=== PATIENT | female | born 1960 | race Two or more races ===

== ENCOUNTER 2016-08-11 19:56 | Emergency (ER) | payer SELFPAY ==
[~2016-08-11] VITALS: Ht 157.5 cm; Wt 63.5 kg
[2016-08-11 21:33] LABS: Urine Mucus FEW (None Seen); Urine RBC 1 /hpf (0 - 4); Urine Squamous Epithelial Cell FEW /hpf (<5)
[2016-08-11 21:35] LABS: Urine Color Yellow (Yellow); Urine Glucose NEG (Normal)
[2016-08-11 21:36] LABS: Urine Bilirubin Negative (Negative); Urine Blood Negative /uL (Negative); Urine Ketone Negative (Negative); Urine Nitrite Negative (Negative); Urine Urobilinogen Normal (Negative)
[2016-08-11 21:36] LABS: Basophils # (auto) 0 uL; Basophils % (auto) 0.5 % (0.0-2.0); Eosinophils # (auto) 0.1 uL; Eosinophils % (auto) 1.5 % (0.0-7.0); Hematocrit 41.3 % (36.0-46.0); Hemoglobin 13.8 g/dL (12.2-16.2); Lymphocytes # (auto) 1.9 uL; Lymphocytes % (auto) 30.6 % (10.0-50.0); Mean Corpuscular Hemoglobin 30.1 pg (28.0-32.0); Mean Corpuscular Hgb Conc. 33.5 g/dL (32.0-36.0); Mean Corpuscular Volume 89.9 fL (80.0-100.0); Mean Platelet Volume 9.1 fL (7.4-10.4); Monocytes # (auto) 0.3 uL; Monocytes % (auto) 5.5 % (0.0-12.0); Neutrophils # (auto) 3.9 uL; Neutrophils % (auto) 61.9 % (37.0-80.0); Platelet Count (auto) 272 10^3/uL (140-450); Red Cell Distribution Width 14.2 % (11.6-16.0); White Blood Cell 6.3 10^3/uL (4.4-10.8)
[2016-08-11 21:53] LABS: Albumin 3.7 g/dL (3.4-5.0); Amylase 93 U/L (25-115); Anion Gap 13 (5-15); Aspartate Aminotransferase 17 U/L (15-37); BUN/Creatinine Ratio 17.1; Blood Urea Nitrogen 12 mg/dL (7-18); Calcium 8.7 mg/dL (8.5-10.1); Carbon Dioxide 21 mmol/L (21-32); Chloride 112 mmol/L (98-107); GFR African American 111 mL/min; GFR Non-African American 92 mL/min; Glucose 170 mg/dL (74-106); Magnesium 2.4 mg/dL (1.6-2.6); Potassium 3.7 mmol/L (3.5-5.1); Sodium 146 mmol/L (136-145)
[2016-08-11 21:56] LABS: INR 0.95 (0.9-1.15); Partial Thromboplastin Time 27.4 sec (22.64-33.71); Prothrombin Time 10.3 sec (9.37-12.3)
[2016-08-11 22:06] LABS: Alkaline Phosphatase 111 U/L (45-117); Bilirubin, Total 0.3 mg/dL (0.2-1.0); Total Protein 7.2 g/dL (6.4-8.2)
[2016-08-12 04:02] VITALS: BP 106/56
[2016-08-12] MEDS ORDERED: KETOROLAC TROMETH 60MG/2ML VIAL IM ONE (04:45)
== END 2016-08-12 05:54 | disposition home or self-care (01) ==
LOC: ER 20:00
DX: S39.012A Strain of muscle, fascia and tendon of lower back, initial encounter (principal); I10 Essential (primary) hypertension; M79.606 Pain in leg, unspecified; X50.9XXA Other and unspecified overexertion or strenuous movements or postures, initial encounter; Y93.89 Activity, other specified; Y99.8 Other external cause status; Y92.89 Other specified places as the place of occurrence of the external cause; Z90.710 Acquired absence of both cervix and uterus
CPT/HCPCS: 36415; 71010; 74176; 80053; 81001; 82150; 83690; 83735; 84484; 85025; 85610; 85730; 93005; 96372; 99285; J1885

== ENCOUNTER 2022-02-11 00:39 | Emergency (ER) | payer MEDICAID, OTHER ==
[~2022-02-11] VITALS: Ht 157.5 cm; Wt 63.0 kg
[2022-02-11 00:39] VITALS: BP 138/75
[2022-02-11] MEDS ORDERED: ACETAMINOPHEN 325 MG TAB PO ONE (03:30)
== END 2022-02-11 05:26 | disposition left against medical advice (07) ==
LOC: ER 00:39
DX: J02.9 Acute pharyngitis, unspecified (principal); R50.9 Fever, unspecified; M79.10 Myalgia, unspecified site; Z53.21 Procedure and treatment not carried out due to patient leaving prior to being seen by health care provider; Z20.822 Contact with and (suspected) exposure to COVID-19
CPT/HCPCS: 36415; 87426; 87804

== ENCOUNTER 2024-08-31 07:51 | Outpatient (CLI) | payer OTHER ==
[~2024-08-31] VITALS: Ht 154.9 cm; Wt 60.3 kg
[2024-08-31] MEDS: REGADENOSON 0.4 MG/5 ML SYRG IV ONE ×2 (10:09→10:14)
[2024-09-01] MEDS ORDERED: IOHEXOL 300 MG/ML 100ML BOTTLE IJ ONE (07:59)
--- NOTE | 2024-09-01 17:21 | DVHSR ---
APPROVED REPORT Exam: Nuclear Stress Test Indication: CAD Stress Tech: Barb Mo Ht: 5 ft 1 in Wt: 133 lbs BSA: 1.59 m2 HR: 56 bpm BP: 125/56 mmHg BMI: 25.12 Rhythm: Bradycardia Medical History Medical History: HTN, Hyperlipidemia, hypothyroidism Stress Test Details Stress Test: Pharmacologic stress testing performed using 0.4 mg of regadenoson per 5 mL given IV ov er 10 seconds. Reason for pharmacologic stress test: chest pain. HR Resting HR: 56 bpmMax Heart Rate (APMHR): 156.330878 bpm Max HR Achieved: 107 bpmTarget HR (85% APMHR): 132.788650 bpm % of APMHR: 68.59 Recovery HR: 76 bpm BP Resting BP: 125/56 mmHg Recovery BP: 123/70 mmHg ECG Resting ECG: Sinus Bradycardia Clinical Reason for Termination: Completed protocol Nurse Comments Uneventful stress test performed per protocol. Patient tolerated well and was taken back to [facility] via wheel chair in stable condition by tech. Stress ECG Conclusion lvef 67% normal perfusion scan NM EXAM: Myocardial Perfusion REST/STRESS Imaging Protocol: Rest Tc-99m/Stress Tc-99m 1 day Resting Data Rest SPECT myocardial perfusion imaging was performed in supine position 60 minutes following the int ravenous injection of 10.0 mCi of Tc-99m Sestamibi. Time of rest injection: 09:00 Date: 08/31/2024 Time of rest imagin:00 Date: 08/31/2024 Administration Route: IV Administration Site: Left Arm Pharmacologic Stress Pharmacologic stress test was performed by injecting Regadenoson 0.4 mg IV push followed by the intra venous injection of 31.4 mCi of Tc-99m Sestamibi. Time of stress injection: 10:05 Date: 08/31/2024 Time of stress imagin:05 Date: 08/31/2024 Administration Route: IV Administration Site: Left Arm Gated Stress SPECT was performed 60 minutes after stress injection. The images were gated to evaluate regional wall motion and calculate left ventricular ejection fracti on. Stress only was performed in the Supine position. Nuclear Conclusion Nuclear Findings: negative for ischemia lvef 67% normal perfusion scan
== END 2024-08-31 17:00 | disposition home or self-care (01) ==
LOC: XYW 07:51
PROVIDERS: ATTEND Internal Medicine
DX: I25.10 Atherosclerotic heart disease of native coronary artery without angina pectoris (principal); I10 Essential (primary) hypertension; R00.2 Palpitations; E78.00 Pure hypercholesterolemia, unspecified; R42 Dizziness and giddiness; R53.83 Other fatigue; R07.9 Chest pain, unspecified; E03.9 Hypothyroidism, unspecified; E78.5 Hyperlipidemia, unspecified; Z68.24 Body mass index [BMI] 24.0-24.9, adult
CPT/HCPCS: 78452; 93017; A9500; J2785

== ENCOUNTER 2024-09-18 18:53 | Inpatient (IN) | payer OTHER ==
[~2024-09-18] VITALS: Ht 157.5 cm; Wt 61.2 kg
--- NOTE | 2024-09-18 19:18 | ED.PDOC ---
History of Present Illness HPI Comments 63-year-old female brought by family for evaluation of palpitations and shortness of breath. Patient states she has been having intermittent episodes of rapid heart rate and shortness of breath while at rest since yesterday afternoon. Patient states she had a recurrent episode approximately an hour ago while sitting watching TV. She checked her heart rate using a pulse oximeter, and heart rate was 111. She denies any associated chest pain, but does report her symptoms are associated with nausea but no vomiting. Denies recent fever, cough, diaphoresis or edema. Patient initially went to urgent Care but was referred to the ER for further evaluation management. Upon arrival blood pressure was 147/90 mmHg, heart rate at 81, and oxygen saturation was 98% on room air. Patient states she recently underwent Cardiology evaluation including echocardiogram, and was told results were normal. She was recommended for a Holter monitor, which she is currently awaiting. She denies any history of lung disease. Chief Complaint: Shortness of Breath Time Seen by MD: 19:18 Reviewed Notes: Nurses Notes Allergies: Coded Allergies: NO KNOWN ALLERGIES (Unverified , 08/31/24) Information Source: Patient Mode of Arrival: Ambulatory Severity: Moderate Timing: Hours Duration: Intermittent Past Medical History PAST MEDICAL HISTORY: High Lipids, HTN, Thyroid Past Medical History (Other): Uterine cancer in remission Surgical History: Appendectomy, Hysterectomy Surgical History (Other): Oophorectomy Family History Family History: Reviewed,noncontributory to illness Social History Smoker: Cigarettes Alcohol: Denies ETOH Use Drugs: Denies Drug Use Lives In: Home Constitutional: denies: chills, diaphoresis, fatigue, fever, malaise, sweats, weakness, others EENTM: denies: blurred vision, double vision, ear bleeding, ear discharge, ear drainage, ear pain, ear ringing, eye pain, eye redness, hearing loss, mouth pain, mouth swelling, nasal discharge, nose bleeding, nose congestion, nose pain, photophobia, tearing, throat pain, throat swelling, voice changes, others Respiratory: reports: shortness of breath; denies: cough, hemoptysis, orthopnea, SOB at rest, SOB with excertion, stridor, wheezing, others Cardiovascular: reports: palpitations; denies: chest pain, dizzy spells, beti phoresis, Dyspnea on exertion, edema, irregular heart beat, left arm pain, lightheadedness, PND, syncope, others Gastrointestinal: reports: nausea; denies: abdomen distended, abdominal pain, blood streaked bowels, constipated, diarrhea, dysphagia, difficulty swallowing, hematemesis, melena, poor appetite, poor fluid intake, rectal bleeding, rectal pain, vomiting, others Genitourinary: denies: abnormal vagina bleeding, burning, dyspareunia, dysuria, flank pain, frequency, hematuria, incontinence, pain, , vagina discharge, urgency, others Neurological: denies: dizziness, fainting, headache, left sided numbness, left sided weakness, numbness, paresthesia, pre-existing deficit, right sided numbness, right sided weakness, seizure, speech problems, tingling, tremors, weakness, others Musculoskeletal: denies: back pain, gout, joint pain, joint swelling, muscle pain, muscle stiffness, neck pain, others Integumetry: denies: bruises, change in color, change in hair/nails, dryness, laceration, lesions, lumps, rash, wounds, others Allergic/Immunocompromised: denies: Difficulty Healing, Frequent Infections, Hives, Itching, others Hematologic/Lymphatic: denies: anemia, blood clots, easy bleeding, easy bruising, swollen glands, others Endocrine: denies: excessive hunger, excessive sweating, excessive thirst, excessive urination, flushing, intolerance to cold, intolerance to heat, unexplained weight gain, unexplained weight loss, others Psychiatric: denies: anxiety, bipolar disorder, depression, hopeless, panic disorder, schizophrenia, sleepless, suicidal, others Physical Exam General Appearance: Mild Distress HEENT: Other (Pupils and face symmetric. Moist mucous membranes.) Neck: Full Range of Motion, Normal Inspection Respiratory: Lungs Clear, No Accessory Muscle Use, No Respiratory Distress, Normal Breath Sounds Cardiovascular: No Edema, No JVD, Regular Rate/Rhythm Breast Exam: Deferred Gastrointestinal: Non Tender, Soft Genitalia: Deferred Pelvic: Deferred Rectal: Deferred Extremities: Normal inspection, Normal range of motion, Non-tender, No pedal edema Neurologic: Alert (Oriented x4), Normal Affect, Normal Mood, Other (Ambulatory) Cerebellar Function: NOT DONE Reflexes: NOT DONE Skin: Dry, Normal Color, Warm Lymphatic: NOT DONE Was a procedure done? Was a procedure done?: No EKG EKG : Comments Sinus rhythm, rate 64, normal intervals, borderline left axis deviation, normal QRS, nonspecific T changes. Differential Dx Considerations may include: Arrhythmia, OK, anxiety, Anemia, electrolyte imbalance, COPD, asthma, CHF, infection such as bronchitis or pneumonia, thyroid disease, among others X-Ray, Labs, Meds, VS Vital Signs Date Time Temp Pulse Resp B/P (MAP) Pulse Ox O2 Delivery O2 Flow Rate FiO2 09/18/24 22:00 97.9 54 20 135/62 (86) 97 97.9 09/18/24 20:11 62 20 96 Room Air 09/18/24 20:11 98.6 62 20 140/69 (92) 96 98.6 09/18/24 19:00 Room Air* 0 21 09/18/24 18:58 98.3 81 20 147/90 (109) 98 98.3 Lab Test 09/18/24 20:19 09/18/24 20:07 09/18/24 19:17 Range/Units Urine Color Yellow Yellow Urine Clarity Clear Clear Urine pH 5.5 5.0-9.0 Urine Specific [place] 1.022 1.001-1.035 Urine Protein Negative Negative Urine Ketones Negative Negative Urine Blood Negative Negative /uL Urine Nitrite Negative Negative Urine Bilirubin Negative Negative Urine Urobilinogen Normal Negative mg/dL Urine Leukocyte Esterase Trace Negative /uL Urine RBC <1 0 - 4 /hpf Urine Microscopic WBC 4 0-5 /HPF Urine Squamous Epithelial Cells Few <5 /hpf Urine Bacteria Few H None Seen /hpf Urine Mucus Few None Seen Urine Glucose Normal Normal mg/dL Troponin I High Sensitivity < 3 L < 3 L </=34 ng/L Thyroid Stimulating Hormone (TSH) 1.80 0.55-4.78 uIU/mL White Blood Count 5.8 4.4-10.8 10^3/uL Red Blood Count 4.37 4.0-5.20 10^6/uL Hemoglobin 13.8 12.2-16.2 g/dL Hematocrit 41.0 36.0-46.0 % Mean Corpuscular Volume 93.6 80.0-100.0 fL Mean Corpuscular Hemoglobin 31.5 28.0-32.0 pg Mean Corpuscular Hemoglobin Concent 33.6 32.0-36.0 g/dL Red Cell Distribution Width 13.4 11.8-14.3 % Platelet Count 199 140-450 10^3/uL Mean Platelet Volume 8.4 6.9-10.8 fL Neutrophils (%) (Auto) 56.8 37.0-80.0 % Lymphocytes (%) (Auto) 34.1 10.0-50.0 % Monocytes (%) (Auto) 7.3 0.0-12.0 % Eosinophils (%) (Auto) 1.0 0.0-7.0 % Basophils (%) (Auto) 0.8 0.0-2.0 % Neutrophils # (Auto) 3.3 1.6-8.6 10 ^3/uL Lymphocytes # (Auto) 2.0 0.4-5.4 10 ^3/uL Monocytes # (Auto) 0.4 0-1.3 10 ^3/uL Eosinophils # (Auto) 0.1 0-0.8 10 ^3/uL Basophils # (Auto) 0 0-0.2 10 ^3/uL Nucleated Red Blood Cells 0.1 % Sodium Level 142 136-145 mmol/L Potassium Level 3.7 3.5-5.1 mmol/L Chloride Level 112 H 98-107 mmol/L Carbon Dioxide Level 22 20-31 mmol/L Anion Gap 8 5-15 Blood Urea Nitrogen 10 9-23 mg/dL Creatinine 0.75 0.550-1.02 mg/dL Glomerular Filtration Rate Calc 89 >90 mL/min BUN/Creatinine Ratio 13.3 10.0-20.0 Serum Glucose 141 H 74-106 mg/dL Calcium Level 10.1 8.7-10.4 mg/dL B-Type Natriuretic Peptide 19.92 0-100 pg/mL Current Medications Medications (Trade) Dose Ordered Sig/Chyna Route Start Time Stop Time Status Last Admin Lorazepam (Ativan Tablet) 0.5 mg ONCE ONCE PO 09/18/24 19:15 09/18/24 19:16 DC 09/18/24 20:23 Ondansetron HCl (Zofran) 4 mg ONCE ONCE IV 09/18/24 19:30 09/18/24 19:31 DC 09/18/24 20:26 CHEST RADIOGRAPH Indication: sob, palpitations Technique: Single frontal view of the chest was obtained Comparison: None FINDINGS: Lines and Tubes: None Lungs and Pleura: Pulmonary vascular congestion. No focal consolidation. No effusion. No pneumothorax. Cardiomediastinal contours: Cardiomegaly Bones: No acute osseous abnormality. IMPRESSION: Cardiomegaly with pulmonary vascular congestion. No focal consolidation. X-Ray, Labs, Meds, VS Comment 63-year-old female with a history of hypertension, dyslipidemia, thyroid disease and prediabetes presenting with palpitations and shortness of breath Vitals unremarkable Exam remarkable for anxious appearance Rhythm strip independently interpreted by me: Sinus rhythm, rate 64, no ectopy. Chest x-ray unremarkable CBC, basic metabolic panel, BNP and troponin unremarkable. UA pending Patient treated with the following in the ED: Ativan 0.5 mg p.o., Zofran 4 mg IV On re-evaluation, patient appears less anxious and nausea has resolved. Vitals are stable. May be due to thyroid disease, COPD or arrhythmia. Plan is to admit the patient for observation and Cardiology/ pulmonology evaluation. Time of 1ST Reevaluation: 19:14 Reevaluation 1ST: Unchanged Patient Education/Counseling: Diagnosis, Treatment Family Education/Counseling: No Family Present SEPSIS Sepsis Screen Physician Orders Chest Portable (09/18/24 19:11) Electrocardigram (09/18/24 19:11) Saline Lock (09/18/24 20:13) Atorvastatin (Lipitor) (09/19/24 22:00) Levothyroxine Tablet (Synthroid Tablet) (09/19/24 06:00) Losartan Tablet (Cozaar Tablet) (09/19/24 10:00) Hydralazine Injection (Apresoline Inject (09/18/24 22:15) Lorazepam 2mg/Ml Inj (Ativan Inj) (09/18/24 22:15) Allergies (09/18/24 22:03) Code Status (09/18/24 22:03) Sodium Chloride 0.9% (09/18/24 22:15) Oxygen Per Hour (09/18/24 22:03) Hydrocodone-Acet 5/325mg Tab ([place] (09/18/24 22:15) Ondansetron Hcl (Zofran) (09/18/24 22:15) Docusate Sodium Capsule (Colace Capsule) (09/18/24 22:15) Cardiac Diet-2gna,Lofat,Lochol (09/19/24 Breakfast) Condition: Serious (09/18/24 22:03) Acetaminophen Tablet (Tylenol Tablet) (09/18/24 22:15) Bedrest With Bathroom Privileg (09/18/24 22:03) Sequential Compression Device (09/18/24 ) Vital Signs Date Time Temp Pulse Resp B/P (MAP) Pulse Ox O2 Delivery O2 Flow Rate FiO2 09/18/24 22:00 97.9 54 20 135/62 (86) 97 97.9 09/18/24 20:11 62 20 96 Room Air 09/18/24 20:11 98.6 62 20 140/69 (92) 96 98.6 09/18/24 19:00 Room Air* 0 21 09/18/24 18:58 98.3 81 20 147/90 (109) 98 98.3 Laboratory Tests Test 09/18/24 19:17 White Blood Count 5.8 10^3/uL (4.4-10.8) Medications Medications Dose Ordered Sig/Chyna Route Start Time Stop Time Status Last Admin Dose Admin Lorazepam 0.5 mg ONCE ONCE PO 09/18/24 19:15 09/18/24 19:16 DC 09/18/24 20:23 Ondansetron HCl 4 mg ONCE ONCE IV 09/18/24 19:30 09/18/24 19:31 DC 09/18/24 20:26 Departure 1 Departure Time of Disposition: 19:54 Impression: Primary Impression: Palpitations Additional Impression: Shortness of breath Disposition: ADMITTED INPATIENT Admit to: Tele Condition: Guarded Critical Care Note Critical Care Time?: No Stability Stability form required: No Heart Score Heart Score: Heart Score Response (Comments) Value History Slightly Suspicious 0 EKG Repolarization Disturb 1 Age 45-64 1 Risk Factors >3 or Hx ASHD 2 Troponin Normal limit 0 Total 4 I personally scribed for HEENA VANN MD ([email or web address]) on 09/18/24 at 19:18. Electronically submitted by Sudhakar Perez ([facility] I personally scribed for HEENA VANN MD ([email or web address]) on 09/18/24 at 20:48. Electronically submitted by Sudhakar Perez ([facility] HEENA VANN MD Sep 18, 2024 19:18
[2024-09-18 19:24] LABS: Basophils # (auto) 0 10 ^3/uL (0-0.2); Basophils % (auto) 0.8 % (0.0-2.0); Eosinophils # (auto) 0.1 10 ^3/uL (0-0.8); Hemoglobin 13.8 g/dL (12.2-16.2); Lymphocytes % (auto) 34.1 % (10.0-50.0); Mean Corpuscular Hemoglobin 31.5 pg (28.0-32.0); Mean Corpuscular Hgb Conc. 33.6 g/dL (32.0-36.0); Mean Corpuscular Volume 93.6 fL (80.0-100.0); Monocytes # (auto) 0.4 10 ^3/uL (0-1.3); Monocytes % (auto) 7.3 % (0.0-12.0); Neutrophils # (auto) 3.3 10 ^3/uL (1.6-8.6); Neutrophils % (auto) 56.8 % (37.0-80.0); Nucleated Red Blood Cells % 0.1 %; Platelet Count (auto) 199 10^3/uL (140-450); Red Blood Cells 4.37 10^6/uL (4.0-5.20); Red Cell Distribution Width 13.4 % (11.8-14.3); White Blood Cell 5.8 10^3/uL (4.4-10.8)
[2024-09-18 19:31] LABS: Potassium 3.7 mmol/L (3.5-5.1); Sodium 142 mmol/L (136-145)
[2024-09-18 19:32] LABS: Anion Gap 8 (5-15); Calcium 10.1 mg/dL (8.7-10.4); Carbon Dioxide 22 mmol/L (20-31)
[2024-09-18 19:37] LABS: BUN/Creatinine Ratio 13.3 (10.0-20.0); Blood Urea Nitrogen 10 mg/dL (9-23)
[2024-09-18 19:39] LABS: Chloride 112 mmol/L (98-107); Glucose 141 mg/dL (74-106)
--- NOTE | 2024-09-18 20:16 | DVH ---
CHEST RADIOGRAPH Indication: sob, palpitations Technique: Single frontal view of the chest was obtained Comparison: None FINDINGS: Lines and Tubes: None Lungs and Pleura: Pulmonary vascular congestion. No focal consolidation. No effusion. No pneumothorax. Cardiomediastinal contours: Cardiomegaly Bones: No acute osseous abnormality. IMPRESSION: Cardiomegaly with pulmonary vascular congestion. No focal consolidation.
[2024-09-18] MEDS: LORazepam 0.5 MG TAB PO ONE (20:23)
[2024-09-18] MEDS: ONDANSETRON HCL 4 MG/2 ML VIAL IV ONE (20:26)
[2024-09-18 20:56] LABS: Urine Bacteria FEW /hpf (None Seen); Urine Blood Negative /uL (Negative); Urine Clarity Clear (Clear); Urine Color Yellow (Yellow); Urine Mucus FEW (None Seen); Urine Protein, UAD Negative (Negative); Urine Specific Gravity 1.022 (1.001-1.035); Urine Squamous Epithelial Cell FEW /hpf (<5); Urine Urobilinogen Normal (Negative); Urine WBC 4 /HPF (0-5); Urine pH 5.5 (5.0-9.0)
[2024-09-18] MEDS ORDERED: DOCUSATE SOD 100 MG CAP PO PRN (22:15)
[2024-09-18] MEDS ORDERED: ACETAMINOPHEN 325 MG TAB PO PRN (22:15)
[2024-09-18] MEDS ORDERED: HYDROcodone-ACET 5/325MG TAB PO PRN (22:15)
[2024-09-18] MEDS ORDERED: LORazepam 2MG/ML-1ML VIAL IV PRN (22:15)
[2024-09-18] MEDS: SODIUM CHLORIDE 0.9% 1,000 ML IV SCH (22:59)
--- NOTE | 2024-09-18 23:22 | DVHHP2 ---
History of Present Illness Reason for Visit: Palpitations History of Present Illness The patient is a 63-year-old female with past medical history of hypertension, thyroid disease, hyperlipidemia, and uterine cancer in remission who presented to [facility] ED with complaint of shortness of breaths and palpitations. Patient reports she has been experiencing intermittent episodes of rapid heart rate, nausea, and shortness of breath while at rest since yesterday afternoon. Patient states she had a recurrent episode approximately an hour ago while sitting watching TV. She checked her heart rate using a pulse oximeter, and heart rate was 111. Patient was seen and evaluated in the ED, laboratory data shows WBC 5.8, platelets 199, sodium 142, potassium 3.7, BUN 10, creatinine 0.75, glucose 141, calcium 10.1, BNP 19.92, troponin < 3, blood pressure 140/69, heart rate 62, temperature 98.6 F, O2 saturation 96% on room air. Chest x-ray revealing cardiomegaly with pulmonary vascular congestion, no focal consolidation. Please see medication orders section in the computer. On my assessment, patient denied chest pain, no headache, no diaphoresis, no dizziness, no shortness of breaths, no nausea, no vomiting, no fever, no chills. Patient was admitted for further evaluation and medical management. Past Medical History High Lipids, HTN, Thyroid, Uterine cancer in remission Past Surgical History Appendectomy, Hysterectomy, Oophorectomy Family History Reviewed, noncontributory to the management of this case. Past Social History Patient lives at home, smokes cigarettes, denies alcohol or illicit drugs abuse. Review of Systems Constitutional: Yes: Weakness; No: Fever, Chills, Sweats, Malaise, Other Eyes: No: Pain, Vision change, Conjunctivae inflammation, Eyelid inflammation, Other, Redness ENT: No: Ear pain, Ear discharge, Nose pain, Nose discharge, Nose congestion, Mouth pain, Mouth swelling, Throat pain, Throat swelling, Other Respiratory: Shortness of breath, Other (SOB at rest); No: Cough, Dry, SOB with excertion, Wheezing, Hemoptysis, Pleuritic Pain, Sputum, Wheezing Cardiovascular: Palpitations; No: Chest Pain, Orthopnea, Paroxysmal Noc. Dyspnea, Edema, Lt Headedness, Other Gastrointestinal: No: Nausea, Vomiting, Abdominal Pain, Diarrhea, Constipation, Melena, Hematochezia, Other Genitourinary: No Dysuria, No Frequency, No Incontinence, No Hematuria, No Retention, No Other Musculoskeletal: No: other, neck pain, shoulder pain, arm pain, back pain, hand pain, leg pain, foot pain Skin: No: Rash, Lesions, Jaundice, Bruising, Other Neurological: No: Weakness, Numbness, Incoordination, Change in speech, Confusion, Seizures, Other Allergies: Coded Allergies: NO KNOWN ALLERGIES (Unverified , 08/31/24) Medications Current Medications Medications Dose Ordered Sig/Chyna Route Start Time Stop Time Status Last Admin Dose Admin Atorvastatin Calcium 20 mg HS PO 09/19/24 22:00 Levothyroxine Sodium 50 mcg QAM@0600 PO 09/19/24 06:00 Losartan Potassium 50 mg DAILY PO 09/19/24 10:00 Hydralazine HCl 10 mg Q6HP PRN IV 09/18/24 22:15 Lorazepam 0.5 mg Q8HP PRN IV 09/18/24 22:15 Sodium Chloride 1,000 ml @ 60 mls/hr [id number] IV 09/18/24 22:15 Acetaminophen/ Hydrocodone Bitart 1 tab Q4HP PRN PO 09/18/24 22:15 Ondansetron HCl 4 mg Q4HP PRN IV 09/18/24 22:15 Docusate Sodium 100 mg BIDPRN PRN PO 09/18/24 22:15 Acetaminophen 650 mg Q6HP PRN PO 09/18/24 22:15 Exam Vital Signs Vital Signs Date Time Temp Pulse Resp B/P (MAP) Pulse Ox O2 Delivery O2 Flow Rate FiO2 09/18/24 22:00 97.9 54 20 135/62 (86) 97 97.9 09/18/24 20:11 Room Air 09/18/24 19:00 0 21 General Appearance: Alert, Oriented X3, Cooperative, No acute distress HEENT: Atraumatic, PERRLA, EOMI, Mucous membr. moist/pink Respiratory: Clear to auscultation, Normal air movement Cardiovascular: Regular rate, Normal S1, Normal S2, No murmurs Abdominal: Normal bowel sounds, Soft, No tenderness, No hepatospenomegaly, No masses Extremities: No clubbing, No cyanosis, No edema, Normal pulses, No tenderness/swelling Skin: No rashes, No breakdown, No significant lesion Neuro: Normal gait, Normal speech, Normal tone, Sensation intact, Cranial nerves 3-12 NL, Reflexes 2+, Other (Generalized weakness) Psych/Mental Status: Mental status NL, Mood NL Labs/Xrays Labs Test 09/18/24 20:19 09/18/24 20:07 09/18/24 19:17 Range/Units Urine Color Yellow Yellow Urine Clarity Clear Clear Urine pH 5.5 5.0-9.0 Urine Specific [place] 1.022 1.001-1.035 Urine Protein Negative Negative Urine Ketones Negative Negative Urine Blood Negative Negative /uL Urine Nitrite Negative Negative Urine Bilirubin Negative Negative Urine Urobilinogen Normal Negative mg/dL Urine Leukocyte Esterase Trace Negative /uL Urine RBC <1 0 - 4 /hpf Urine Microscopic WBC 4 0-5 /HPF Urine Squamous Epithelial Cells Few <5 /hpf Urine Bacteria Few H None Seen /hpf Urine Mucus Few None Seen Urine Glucose Normal Normal mg/dL Troponin I High Sensitivity < 3 L </=34 ng/L Thyroid Stimulating Hormone (TSH) 1.80 0.55-4.78 uIU/mL White Blood Count 5.8 4.4-10.8 10^3/uL Red Blood Count 4.37 4.0-5.20 10^6/uL Hemoglobin 13.8 12.2-16.2 g/dL Hematocrit 41.0 36.0-46.0 % Mean Corpuscular Volume 93.6 80.0-100.0 fL Mean Corpuscular Hemoglobin 31.5 28.0-32.0 pg Mean Corpuscular Hemoglobin Concent 33.6 32.0-36.0 g/dL Red Cell Distribution Width 13.4 11.8-14.3 % Platelet Count 199 140-450 10^3/uL Mean Platelet Volume 8.4 6.9-10.8 fL Neutrophils (%) (Auto) 56.8 37.0-80.0 % Lymphocytes (%) (Auto) 34.1 10.0-50.0 % Monocytes (%) (Auto) 7.3 0.0-12.0 % Eosinophils (%) (Auto) 1.0 0.0-7.0 % Basophils (%) (Auto) 0.8 0.0-2.0 % Neutrophils # (Auto) 3.3 1.6-8.6 10 ^3/uL Lymphocytes # (Auto) 2.0 0.4-5.4 10 ^3/uL Monocytes # (Auto) 0.4 0-1.3 10 ^3/uL Eosinophils # (Auto) 0.1 0-0.8 10 ^3/uL Basophils # (Auto) 0 0-0.2 10 ^3/uL Nucleated Red Blood Cells 0.1 % Sodium Level 142 136-145 mmol/L Potassium Level 3.7 3.5-5.1 mmol/L Chloride Level 112 H 98-107 mmol/L Carbon Dioxide Level 22 20-31 mmol/L Anion Gap 8 5-15 Blood Urea Nitrogen 10 9-23 mg/dL Creatinine 0.75 0.550-1.02 mg/dL Glomerular Filtration Rate Calc 89 >90 mL/min BUN/Creatinine Ratio 13.3 10.0-20.0 Serum Glucose 141 H 74-106 mg/dL Calcium Level 10.1 8.7-10.4 mg/dL B-Type Natriuretic Peptide 19.92 0-100 pg/mL PATIENT: DESMOND MALONE ACCT: [id number] UNIT: [id number] : 1960 LOC: ER ROOM / BED: / AGE / SEX: 63 / F ADM STATUS: REG ER SERVICE 10 ORDERING PHYSICIAN: HEENA VANN MD PROCEDURE(s): CXRP - CHEST PORTABLE REASON: sob, palpitations ORDER NUMBER(s): [id number], ACCESSION NUMBER(s): [id number] CHEST RADIOGRAPH Indication: sob, palpitations Technique: Single frontal view of the chest was obtained Comparison: None FINDINGS: Lines and Tubes: None Lungs and Pleura: Pulmonary vascular congestion. No focal consolidation. No effusion. No pneumothorax. Cardiomediastinal contours: Cardiomegaly Bones: No acute osseous abnormality. IMPRESSION: Cardiomegaly with pulmonary vascular congestion. No focal consolidation. Assessment/Plan Assessment/Plan Palpitations Shortness of breath Pulmonary vascular congestion Generalized weakness Plan 1. Admit to telemetry unit 2. Breathing treatment 3. Pain control management 4. Management of fluids and electrolytes 5. Consultation for hospitalist 6. Diagnostic tests chest x-ray 7. DVT prophylaxis-on SCDs 8. Repeat labs CBC, CMP in a.m. 9. Continue with current medical management 10. Treatment plan discussed with patient and RN. Patient verbalized understanding. Plan discussed with: Patient, Other (RN) My Orders Orders - QUOC RUBALCAVA DNP Procedure Category Date Status Time Atorvastatin (Lipitor) PHA 09/19/24 In Process 22:00 Levothyroxine Tablet PHA 09/19/24 In Process (Synthroid Tablet) 06:00 Losartan Tablet PHA 09/19/24 In Process (Cozaar Tablet) 10:00 Hydralazine Injection PHA 09/18/24 In Process (Apresoline Inject 22:15 Lorazepam 2mg/Ml Inj PHA 09/18/24 In Process (Ativan Inj) 22:15 Allergies IVY 09/18/24 In Process 22:03 Code Status CODE 09/18/24 Transmitted 22:03 Sodium Chloride 0.9% PHA 09/18/24 In Process 22:15 Oxygen Per Hour RT 09/18/24 Transmitted 22:03 Hydrocodone-Acet PHA 09/18/24 In Process 5/325mg Tab ([place] 22:15 Ondansetron Hcl PHA 09/18/24 In Process (Zofran) 22:15 Docusate Sodium PHA 09/18/24 In Process Capsule (Colace 22:15 Complete Blood Count LAB 09/19/24 Verified 04:00 Comprehensive LAB 09/19/24 Verified Metabolic Panel 04:00 Cardiac DIET 09/19/24 Transmitted Diet-2gna,Lofat,Lochol Breakfast Condition: Serious IVY 09/18/24 In Process 22:03 Acetaminophen Tablet PHA 09/18/24 In Process (Tylenol Tablet) 22:15 Bedrest With Bathroom IYV 09/18/24 In Process Privileg 22:03 Sequential IVY 09/18/24 In Process Compression Device Problem List: (1) Palpitations (2) Shortness of breath (3) Pulmonary vascular congestion (4) Generalized weakness Date of Service: Sep 18, 2024 Billing Provider: QUOC RUBALCAVA DNP Common Visit Codes: 87370-[id number] INP/OBS CARE (HIGH) QUOC RUBALCAVA DNP Sep 18, 2024 23:22
[2024-09-18] MEDS ORDERED: NITROGLYCERIN 0.4 MG SL TAB SL PRN (23:30)
[2024-09-18] MEDS ORDERED: MORPHINE SULFATE INJ 2 MG/ml SYRG IV PRN (23:30)
[2024-09-19] VITALS (8 sets, daily range): BP systolic 103–136; BP diastolic 57–74; PULSE 55–74; RESP 16–18; TEMP 97.4–98.7; O2SAT 93–98
[2024-09-19 05:52] LABS: Basophils # (auto) 0 10 ^3/uL (0-0.2); Basophils % (auto) 0.4 % (0.0-2.0); Eosinophils # (auto) 0.1 10 ^3/uL (0-0.8); Eosinophils % (auto) 1.2 % (0.0-7.0); Hemoglobin 13.2 g/dL (12.2-16.2); Lymphocytes % (auto) 32.6 % (10.0-50.0); Mean Corpuscular Hemoglobin 31.6 pg (28.0-32.0); Mean Corpuscular Volume 93.2 fL (80.0-100.0); Monocytes # (auto) 0.4 10 ^3/uL (0-1.3); Monocytes % (auto) 7.3 % (0.0-12.0); Neutrophils # (auto) 3.6 10 ^3/uL (1.6-8.6); Neutrophils % (auto) 58.5 % (37.0-80.0); Platelet Count (auto) 180 10^3/uL (140-450); Red Blood Cells 4.18 10^6/uL (4.0-5.20); Red Cell Distribution Width 13.5 % (11.8-14.3); White Blood Cell 6.1 10^3/uL (4.4-10.8)
[2024-09-19] MEDS: LEVOTHYROXINE SODIUM 50 MCG TAB PO SCH (06:00)
[2024-09-19 06:08] LABS: Alanine Aminotransferase 19 U/L (7-40); Albumin 4.4 g/dL (3.2-4.8); Alkaline Phosphatase 70 U/L (46-116); Anion Gap 9 (5-15); Aspartate Aminotransferase 16 U/L (<34); BUN/Creatinine Ratio 15.6 (10.0-20.0); Blood Urea Nitrogen 12 mg/dL (9-23); Calcium 9.5 mg/dL (8.7-10.4); Carbon Dioxide 25 mmol/L (20-31); Glucose 87 mg/dL (74-106); Total Protein 6.1 g/dL (5.7-8.2)
[2024-09-19 06:09] LABS: Bilirubin, Total 0.6 mg/dL (0.2-1.0); Chloride 112 mmol/L (98-107); Sodium 146 mmol/L (136-145)
[2024-09-19] MEDS: LOSARTAN POTASSIUM 50 MG TAB PO SCH (09:39)
--- NOTE | 2024-09-19 14:04 | DVHINCON2 ---
Date Seen: Sep 19, 2024 Referring Physician Chacho Reason for Consultation Palpitations History of Present Illness 63-year-old female with PMH for HTN, thyroid disease, HLD, uterine cancer in remission presents to the hospital with complaint of shortness of breath and palpitations. Patient states that has been an ongoing intermittent issue. She is following up with Cardiology on outpatient basis underwent recent stress test and echocardiogram with no significant findings. Denies chest pain, lightheadedness, diaphoresis, syncope. Upon evaluation in the ER, troponin negative x2. CXR reviewed and showed cardiomegaly with pulmonary vascular congestion. Past Medical History As stated above Past Surgical History As stated above Allergies: Coded Allergies: NO KNOWN ALLERGIES (Unverified , 08/31/24) Current Medications Current Medications Medications (Trade) Dose Ordered Sig/Chyna Route PRN Reason Start Time Stop Time Status Last Admin Atorvastatin Calcium (Lipitor) 20 mg HS PO 09/19/24 22:00 Levothyroxine Sodium (Synthroid Tablet) 50 mcg QAM@0600 PO 09/19/24 06:00 09/19/24 06:00 Losartan Potassium (Cozaar Tablet) 50 mg DAILY PO 09/19/24 10:00 Hydralazine HCl (Apresoline Injection) 10 mg Q6HP PRN IV SBP>150 09/18/24 22:15 Lorazepam (Ativan Inj) 0.5 mg Q8HP PRN IV ANXIETY 09/18/24 22:15 Sodium Chloride 1,000 ml @ 60 mls/hr [id number] IV 09/18/24 22:15 09/19/24 09:59 Acetaminophen/ Hydrocodone Bitart ([place] 5/325MG Tab) 1 tab Q4HP PRN PO MODERATE PAIN (4-6 PAIN SCALE) 09/18/24 22:15 Ondansetron HCl (Zofran) 4 mg Q4HP PRN IV NAUSEA / VOMITING 09/18/24 22:15 Docusate Sodium (Colace Capsule) 100 mg BIDPRN PRN PO FOR CONSTIPATION 09/18/24 22:15 Acetaminophen (Tylenol Tablet) 650 mg Q6HP PRN PO PAIN SCALE 1-3 OR TEMP>100.4 09/18/24 22:15 Nitroglycerin (Ntrostat Sublingual) 0.4 mg Q5MINP PRN SL FOR CHEST PAIN 09/18/24 23:30 Morphine Sulfate 2 mg Q30M PRN IV FOR CHEST PAIN 09/18/24 23:30 Review of Systems Constitutional: No: Fever, Chills, Sweats, Weakness, Malaise, Other Eyes: No: Pain, Vision change, Conjunctivae inflammation, Eyelid inflammation, Other, Redness ENT: No: Ear pain, Ear discharge, Nose pain, Nose discharge, Nose congestion, Mouth pain, Mouth swelling, Throat pain, Throat swelling, Other Respiratory: No: Cough, Dry, Shortness of breath, SOB with exertion, Wheezing, Hemoptysis, Pleuritic Pain, Sputum, Wheezing, Other Cardiovascular: ; No: Chest Pain Palpitations, Orthopnea, Paroxysmal Noc. Dyspnea, Edema, Lt Headedness, Other Gastrointestinal: No: Nausea, Vomiting, Abdominal Pain, Diarrhea, Constipation, Melena, Hematochezia, Other Genitourinary: No Dysuria, No Frequency, No Incontinence, No Hematuria, No Retention, No Other Musculoskeletal: neck pain; No: other, shoulder pain, arm pain, back pain, hand pain, leg pain, foot pain Skin: No: Rash, Lesions, Jaundice, Bruising, Other Neurological: Other (Dizziness, headache.); No: Weakness, Numbness, Incoordination, Change in speech, Confusion, Seizures Vital Signs Vital Signs Date Time Temp Pulse Resp B/P (MAP) Pulse Ox O2 Delivery O2 Flow Rate FiO2 09/19/24 09:39 136/74 09/19/24 09:03 97.9 55 16 95 97.9 09/18/24 20:11 Room Air 09/18/24 19:00 0 21 Physical Exam General appearance: Patient is well-developed, well-nourished, in no acute distress. HEENT: Exam shows: Normocephalic, atraumatic, PERRLA, EOMI Neck: Supple, no bruits Chest: Equal chest excursion bilaterally. Breath sounds normal-no rales or wheezes. Heart: Rhythm: Regular rate; no murmur or gallop Abdomen: Exam shows: Soft, nontender, nondistended Musculoskeletal: No clubbing, no cyanosis, no lower extremity edema Dermatology: Skin warm, moist. Neurological: Exam shows: Alert and oriented x4, normal speech Available prior records, labs, EKG, rhythm strips reviewed and interpreted Labs/Diagnostic Data Labs Test 09/19/24 05:41 09/18/24 20:19 09/18/24 20:07 09/18/24 19:17 Range/Units White Blood Count 6.1 4.4-10.8 10^3/uL Red Blood Count 4.18 4.0-5.20 10^6/uL Hemoglobin 13.2 12.2-16.2 g/dL Hematocrit 39.0 36.0-46.0 % Mean Corpuscular Volume 93.2 80.0-100.0 fL Mean Corpuscular Hemoglobin 31.6 28.0-32.0 pg Mean Corpuscular Hemoglobin Concent 34.0 32.0-36.0 g/dL Red Cell Distribution Width 13.5 11.8-14.3 % Platelet Count 180 140-450 10^3/uL Mean Platelet Volume 8.4 6.9-10.8 fL Neutrophils (%) (Auto) 58.5 37.0-80.0 % Lymphocytes (%) (Auto) 32.6 10.0-50.0 % Monocytes (%) (Auto) 7.3 0.0-12.0 % Eosinophils (%) (Auto) 1.2 0.0-7.0 % Basophils (%) (Auto) 0.4 0.0-2.0 % Neutrophils # (Auto) 3.6 1.6-8.6 10 ^3/uL Lymphocytes # (Auto) 2.0 0.4-5.4 10 ^3/uL Monocytes # (Auto) 0.4 0-1.3 10 ^3/uL Eosinophils # (Auto) 0.1 0-0.8 10 ^3/uL Basophils # (Auto) 0 0-0.2 10 ^3/uL Nucleated Red Blood Cells 0.0 % Sodium Level 146 H 136-145 mmol/L Potassium Level 4.0 3.5-5.1 mmol/L Chloride Level 112 H 98-107 mmol/L Carbon Dioxide Level 25 20-31 mmol/L Anion Gap 9 5-15 Blood Urea Nitrogen 12 9-23 mg/dL Creatinine 0.77 0.550-1.02 mg/dL Glomerular Filtration Rate Calc 86 >90 mL/min BUN/Creatinine Ratio 15.6 10.0-20.0 Serum Glucose 87 74-106 mg/dL Calcium Level 9.5 8.7-10.4 mg/dL Total Bilirubin 0.6 0.2-1.0 mg/dL Aspartate Amino Transferase (AST) 16 <34 U/L Alanine Aminotransferase (ALT) 19 7-40 U/L Alkaline Phosphatase 70 46-116 U/L Total Protein 6.1 5.7-8.2 g/dL Albumin 4.4 3.2-4.8 g/dL Urine Color Yellow Yellow Urine Clarity Clear Clear Urine pH 5.5 5.0-9.0 Urine Specific [place] 1.022 1.001-1.035 Urine Protein Negative Negative Urine Ketones Negative Negative Urine Blood Negative Negative /uL Urine Nitrite Negative Negative Urine Bilirubin Negative Negative Urine Urobilinogen Normal Negative mg/dL Urine Leukocyte Esterase Trace Negative /uL Urine RBC <1 0 - 4 /hpf Urine Microscopic WBC 4 0-5 /HPF Urine Squamous Epithelial Cells Few <5 /hpf Urine Bacteria Few H None Seen /hpf Urine Mucus Few None Seen Urine Glucose Normal Normal mg/dL Troponin I High Sensitivity < 3 L </=34 ng/L Thyroid Stimulating Hormone (TSH) 1.80 0.55-4.78 uIU/mL B-Type Natriuretic Peptide 19.92 0-100 pg/mL Assessment * Palpitations - continue telemetry monitoring. Patient is scheduled with follow up with her purchasing manager/sales for event monitoring this week. Patient to follow up as planned. TSH normal. * SOB - BNP normal. CXR shows cardiomegaly with pulmonary congestion. Check echo. * HTN -stable on current regimen. Case Discussed with Dr Potts. If no significant abnormalities noted on echo, patient stable for discharge to follow up with a purchasing manager/sales for continued outpatient event monitoring. Critical care, time spent: 36 minutes This medical document was created using an electronic medical record system with voice recognition software and computerized dictation system. Although this document has been carefully reviewed, there might still be some phonetic and typographical errors. Occasional wrong-word or ``sound-alike substitutions may have occurred due to the inherent limitations of voice recognition software. These areas are purely typographical due to imperfections of the software programs and do not reflect any compromise in the patient's medical care. Please read the chart carefully and recognize, using context, where these substitutions have occurred. Thank you for allowing me to participate in the management of this patient. The treatment plan was discussed with and agreed upon by patient/family including requesting consultants and ordering of imaging/procedures. Plan discussed with: Patient NYHA Physical activity limitations: Class2(Slight)fatigue,sob Date of Service: Sep 19, 2024 Billing Provider: LUIS E AVILES Cardiology Common Codes: [id number] INP/OBS CARE (High), [id number] CARE 30-74 MIN LUIS E AVILES Sep 19, 2024 14:04
--- NOTE | 2024-09-19 15:14 | DVHPN2 ---
Subjective Overnight events noted. I am assuming the care of the patient from today onwards who is complaining of chest pain and palpitations. Changes from previous H/P or p: No Changes Eyes: No Pain, No Vision change, No Conjunctivae inflammation, No Eyelid inflammation, No Other, No Redness ENT: No Ear pain, No Ear discharge, No Nose pain, No Nose discharge, No Nose congestion, No Mouth pain, No Mouth swelling, No Throat pain, No Throat swelling, No Other Cardiovascular: No Chest Pain; Palpitations; No Orthopnea, No Paroxysmal Noc. Dyspnea, No Edema, No Lt Headedness, No Other Respiratory: No Cough, No Dry; Shortness of breath; No SOB with excertion, No Wheezing, No Hemoptysis, No Pleuritic Pain, No Sputum; Other (SOB at rest) Gastrointestinal: No Nausea, No Vomiting, No Abdominal Pain, No Diarrhea, No Constipation, No Melena, No Hematochezia, No Other Genitourinary: No Dysuria, No Frequency, No Incontinence, No Hematuria, No Retention, No Other Musculoskeletal: No other, No neck pain, No shoulder pain, No arm pain, No back pain, No hand pain, No leg pain, No foot pain Skin: No Rash, No Lesions, No Jaundice, No Bruising, No Other Objective Vitals Vital Signs Date Time Temp Pulse Resp B/P (MAP) Pulse Ox O2 Delivery O2 Flow Rate FiO2 09/19/24 14:29 98.2 61 16 114/57 (76) 96 98.2 09/18/24 20:11 Room Air 09/18/24 19:00 0 21 Exam HEENT pupils are reactive Neck is supple CV is S1-S2 regular rate and rhythm Respiratory are clear GI positive bowel sound Extremity no edema 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 Medications Current Medications Medications Dose Ordered Sig/Chyna Route Start Time Stop Time Status Last Admin Dose Admin Atorvastatin Calcium 20 mg HS PO 09/19/24 22:00 Levothyroxine Sodium 50 mcg QAM@0600 PO 09/19/24 06:00 09/19/24 06:00 50 MCG Losartan Potassium 50 mg DAILY PO 09/19/24 10:00 Hydralazine HCl 10 mg Q6HP PRN IV 09/18/24 22:15 Lorazepam 0.5 mg Q8HP PRN IV 09/18/24 22:15 Sodium Chloride 1,000 ml @ 60 mls/hr [id number] IV 09/18/24 22:15 09/19/24 09:59 60 MLS/HR Acetaminophen/ Hydrocodone Bitart 1 tab Q4HP PRN PO 09/18/24 22:15 Ondansetron HCl 4 mg Q4HP PRN IV 09/18/24 22:15 Docusate Sodium 100 mg BIDPRN PRN PO 09/18/24 22:15 Acetaminophen 650 mg Q6HP PRN PO 09/18/24 22:15 Nitroglycerin 0.4 mg Q5MINP PRN SL 09/18/24 23:30 Morphine Sulfate 2 mg Q30M PRN IV 09/18/24 23:30 Ceftriaxone Sodium 50 ml @ 100 mls/hr DAILY@09 IV 09/20/24 15:30 UNV Laboratory Results Laboratory Tests 09/19/24 05:41 Chemistry Test 09/18/24 19:17 09/19/24 05:41 Calcium Level 10.1 mg/dL (8.7-10.4) 9.5 mg/dL (8.7-10.4) Albumin 4.4 g/dL (3.2-4.8) Total Protein 6.1 g/dL (5.7-8.2) Cardiac Markers Test 09/18/24 19:17 B-Type Natriuretic Peptide 19.92 pg/mL (0-100) LFT Test 09/19/24 05:41 Alanine Aminotransferase (ALT) 19 U/L (7-40) Alkaline Phosphatase 70 U/L (46-116) Aspartate Amino Transferase (AST) 16 U/L (<34) Total Bilirubin 0.6 mg/dL (0.2-1.0) HgA1c, TSH Test 09/18/24 20:07 Thyroid Stimulating Hormone (TSH) 1.80 uIU/mL (0.55-4.78) Urinalysis Test 09/18/24 20:19 Urine Color Yellow (Yellow) Urine Clarity Clear (Clear) Urine pH 5.5 (5.0-9.0) Urine Specific [place] 1.022 (1.001-1.035) Urine Protein Negative (Negative) Urine Ketones Negative (Negative) Urine Blood Negative /uL (Negative) Urine Nitrite Negative (Negative) Urine Bilirubin Negative (Negative) Urine Urobilinogen Normal mg/dL (Negative) Urine Leukocyte Esterase Trace /uL (Negative) Urine RBC <1 /hpf (0 - 4) Urine Microscopic WBC 4 /HPF (0-5) Urine Squamous Epithelial Cells Few /hpf (<5) Urine Bacteria Few /hpf (None Seen) H Urine Mucus Few (None Seen) Urine Glucose Normal mg/dL (Normal) Assessment/Plan Assessment/Plan 63-year-old female with a known history of hypertension, dyslipidemia, thyroid disease, history of uterine cancer currently in remission presented to the hospital with the chest pain and palpitation found to have 1. Chest pain and palpitation ruled out any cardiac arrhythmia, outpatient event monitoring or Holter monitoring 2. Shortness of breath 3. Pulmonary venous congestion 4. Hypertension 5. Dyslipidemia 6. Thyroid disease 7. History of uterine cancer currently in remission -2D echo, cardiology consultation, discharge plan. -outpatient follow up with the Cardiology for Holter/event monitoring. Plan discussed with: Patient My Orders Orders - CLARISA NEGRON MD Procedure Category Date Status Time * Cardiology Consult CONS 09/19/24 Transmitted 14:49 Ceftriaxone 1gm/50ml PHA 09/20/24 Logged D5w (Rocephin) 15:30 Date of Service: Sep 19, 2024 Billing Provider: CLARISA NEGRON MD Common Visit Codes: [id number] INP/OBS CARE(MOD) CLARISA NEGRON MD Sep 19, 2024 15:14
[2024-09-19] MEDS ORDERED: LOSA100T33 PO (17:16)
[2024-09-19] MEDS ORDERED: ATOR20TA50 PO (17:16)
[2024-09-19] MEDS ORDERED: LEVO-848 PO (17:16)
[2024-09-19] MEDS: ATORVASTATIN 20 MG TAB PO SCH (21:51)
--- NOTE | 2024-09-19 21:58 | DVHSR ---
APPROVED REPORT EXAM: Two-dimensional and M-mode echocardiogram with Doppler and color Doppler. Blood Pressure: 136/74 mmHg INDICATION Palpitations SOB RISK FACTORS Height: 5'2", Weight: 134 DIMENSIONS LVDd4.8 (3.8-5.7cm)LA (2D)3.6 (1.9-4.0cm)Aortic Root3.1 (2.0-3.7cm) LVDs3.7 (2.5-4.0cm)LA (MM) (1.9-4.0cm)Aortic Cusp Exc1.5 (1.5-2.0cm) EF (%) 55.0 (55-70%)Rt. Atrium3.6 (1.9-4.0cm)Asc. Aorta cm IVSd0.9 (0.7-1.1cm)RV (D)3.7 (1.8-2.4cm) PWd0.9 (0.7-1.1cm) Mitral Valve MitralMitral Stenosis E wave0.82m/sMV Mean GR.mmHg A wave0.68m/sMV Peak GR.mmHg E/A ratio1.22D MVAcm2 DECEL [id number] 1/2 Timems Aortic Valve Aortic ValveAortic Stenosis V11.05m/Ginette Mean GR.5mmHg V21.47m/Ginette Peak GR.9mmHg LVOT Diameter2.0 (1.8-2.4cm)Doppler AVA2.24cm2 Pulmonic Valve V20.86m/s Tricuspid Valve TR Velocity2.51m/s [id number] Other Information Technically limited study due to body habitus. Conclusion MILD LVH AND MILD LV DIASTOLIC DYSFUNCTION LV EF IS 65% AND IS NORMAL NORMAL VALVES NORMAL RV FUNCTION, SIZE AND PRESSURE NO EFFUSION
--- NOTE | 2024-09-19 23:36 | DVHINCON2 ---
Date Seen: Sep 19, 2024 Referring Physician Chacho Reason for Consultation Heart Palpitations History of Present Illness This is a 63-year-old female with a PMH of HTN, thyroid disease, HLD, uterine cancer in remission presents to the ED with a complaint of shortness of breath and heart palpitations. Patient states that has been an ongoing intermittent issue. She is following up with Cardiology on outpatient basis underwent recent stress test and echocardiogram with no significant findings. Denies chest pain, lightheadedness, diaphoresis, syncope. Upon evaluation in the ED, troponin negative x2. Chest x-ray showed cardiomegaly with pulmonary vascular congestion. Patient was admitted to the hospital. I am asked to consult on this patient. Past Medical History As stated above Past Surgical History As stated above Allergies: Coded Allergies: NO KNOWN ALLERGIES (Unverified , 08/31/24) Home Meds Reported Medications Losartan Potassium & Hydrochlo (Losartan Potassium/Hydroc) 1 Tab Tab, 1 TAB PO DAILY, #30 TAB 5 Refills 09/19/24 Levothyroxine Sodium (SYNTHROID TABLET) 50 Mcg Tb, 1 TAB PO DAILY, #30 TAB 5 Refills 09/19/24 Atorvastatin Calcium (ATORVASTATIN CALCIUM) 20 Mg Tab, 1 TAB PO DAILY, #30 TAB 5 Refills 09/19/24 Current Medications Current Medications Medications (Trade) Dose Ordered Sig/Chyna Route PRN Reason Start Time Stop Time Status Last Admin Atorvastatin Calcium (Lipitor) 20 mg HS PO 09/19/24 22:00 Levothyroxine Sodium (Synthroid Tablet) 50 mcg QAM@0600 PO 09/19/24 06:00 09/19/24 06:00 Losartan Potassium (Cozaar Tablet) 50 mg DAILY PO 09/19/24 10:00 Hydralazine HCl (Apresoline Injection) 10 mg Q6HP PRN IV SBP>150 09/18/24 22:15 Lorazepam (Ativan Inj) 0.5 mg Q8HP PRN IV ANXIETY 09/18/24 22:15 Sodium Chloride 1,000 ml @ 60 mls/hr [id number] IV 09/18/24 22:15 09/19/24 09:59 Acetaminophen/ Hydrocodone Bitart ([place] 5/325MG Tab) 1 tab Q4HP PRN PO MODERATE PAIN (4-6 PAIN SCALE) 09/18/24 22:15 Ondansetron HCl (Zofran) 4 mg Q4HP PRN IV NAUSEA / VOMITING 09/18/24 22:15 Docusate Sodium (Colace Capsule) 100 mg BIDPRN PRN PO FOR CONSTIPATION 09/18/24 22:15 Acetaminophen (Tylenol Tablet) 650 mg Q6HP PRN PO PAIN SCALE 1-3 OR TEMP>100.4 09/18/24 22:15 Nitroglycerin (Ntrostat Sublingual) 0.4 mg Q5MINP PRN SL FOR CHEST PAIN 09/18/24 23:30 Morphine Sulfate 2 mg Q30M PRN IV FOR CHEST PAIN 09/18/24 23:30 Ceftriaxone Sodium 50 ml @ 100 mls/hr DAILY@09 IV 09/20/24 15:30 Review of Systems Constitutional: No: Fever, Chills, Sweats, Weakness, Malaise, Other Eyes: No: Pain, Vision change, Conjunctivae inflammation, Eyelid inflammation, Other, Redness ENT: No: Ear pain, Ear discharge, Nose pain, Nose discharge, Nose congestion, Mouth pain, Mouth swelling, Throat pain, Throat swelling, Other Respiratory: No: Cough, Dry, Shortness of breath, SOB with exertion, Wheezing, Hemoptysis, Pleuritic Pain, Sputum, Wheezing, Other Cardiovascular: ; No: Chest Pain Palpitations, Orthopnea, Paroxysmal Noc. Dyspnea, Edema, Lt Headedness, Other Gastrointestinal: No: Nausea, Vomiting, Abdominal Pain, Diarrhea, Constipation, Melena, Hematochezia, Other Genitourinary: No Dysuria, No Frequency, No Incontinence, No Hematuria, No Retention, No Other Musculoskeletal: neck pain; No: other, shoulder pain, arm pain, back pain, hand pain, leg pain, foot pain Skin: No: Rash, Lesions, Jaundice, Bruising, Other Neurological: Other (Dizziness, headache.); No: Weakness, Numbness, Incoordination, Change in speech, Confusion, Seizures Vital Signs Vital Signs Date Time Temp Pulse Resp B/P (MAP) Pulse Ox O2 Delivery O2 Flow Rate FiO2 09/19/24 16:14 97.4 66 18 114/70 (85) 95 97.4 09/18/24 20:11 Room Air 09/18/24 19:00 0 21 Physical Exam GENERAL: Alert and oriented x 3. No acute distress. EYES: PERRL, EOMI. Anicteric. HENT: Moist mucous membranes. LUNGS: Clear to auscultation bilaterally. CARDIOVASCULAR: Regular rate and rhythm. ABDOMEN: Soft, nontender and nondistended. EXTREMITIES: No edema. NEUROLOGIC: No focal neurological deficits. SKIN: Warm, dry. Labs/Diagnostic Data Labs Test 09/19/24 05:41 09/18/24 20:19 09/18/24 20:07 09/18/24 19:17 Range/Units White Blood Count 6.1 4.4-10.8 10^3/uL Red Blood Count 4.18 4.0-5.20 10^6/uL Hemoglobin 13.2 12.2-16.2 g/dL Hematocrit 39.0 36.0-46.0 % Mean Corpuscular Volume 93.2 80.0-100.0 fL Mean Corpuscular Hemoglobin 31.6 28.0-32.0 pg Mean Corpuscular Hemoglobin Concent 34.0 32.0-36.0 g/dL Red Cell Distribution Width 13.5 11.8-14.3 % Platelet Count 180 140-450 10^3/uL Mean Platelet Volume 8.4 6.9-10.8 fL Neutrophils (%) (Auto) 58.5 37.0-80.0 % Lymphocytes (%) (Auto) 32.6 10.0-50.0 % Monocytes (%) (Auto) 7.3 0.0-12.0 % Eosinophils (%) (Auto) 1.2 0.0-7.0 % Basophils (%) (Auto) 0.4 0.0-2.0 % Neutrophils # (Auto) 3.6 1.6-8.6 10 ^3/uL Lymphocytes # (Auto) 2.0 0.4-5.4 10 ^3/uL Monocytes # (Auto) 0.4 0-1.3 10 ^3/uL Eosinophils # (Auto) 0.1 0-0.8 10 ^3/uL Basophils # (Auto) 0 0-0.2 10 ^3/uL Nucleated Red Blood Cells 0.0 % Sodium Level 146 H 136-145 mmol/L Potassium Level 4.0 3.5-5.1 mmol/L Chloride Level 112 H 98-107 mmol/L Carbon Dioxide Level 25 20-31 mmol/L Anion Gap 9 5-15 Blood Urea Nitrogen 12 9-23 mg/dL Creatinine 0.77 0.550-1.02 mg/dL Glomerular Filtration Rate Calc 86 >90 mL/min BUN/Creatinine Ratio 15.6 10.0-20.0 Serum Glucose 87 74-106 mg/dL Calcium Level 9.5 8.7-10.4 mg/dL Total Bilirubin 0.6 0.2-1.0 mg/dL Aspartate Amino Transferase (AST) 16 <34 U/L Alanine Aminotransferase (ALT) 19 7-40 U/L Alkaline Phosphatase 70 46-116 U/L Total Protein 6.1 5.7-8.2 g/dL Albumin 4.4 3.2-4.8 g/dL Urine Color Yellow Yellow Urine Clarity Clear Clear Urine pH 5.5 5.0-9.0 Urine Specific [place] 1.022 1.001-1.035 Urine Protein Negative Negative Urine Ketones Negative Negative Urine Blood Negative Negative /uL Urine Nitrite Negative Negative Urine Bilirubin Negative Negative Urine Urobilinogen Normal Negative mg/dL Urine Leukocyte Esterase Trace Negative /uL Urine RBC <1 0 - 4 /hpf Urine Microscopic WBC 4 0-5 /HPF Urine Squamous Epithelial Cells Few <5 /hpf Urine Bacteria Few H None Seen /hpf Urine Mucus Few None Seen Urine Glucose Normal Normal mg/dL Troponin I High Sensitivity < 3 L </=34 ng/L Thyroid Stimulating Hormone (TSH) 1.80 0.55-4.78 uIU/mL B-Type Natriuretic Peptide 19.92 0-100 pg/mL Assessment Heart palpitations. SOB. HTN. Plan/Recommendation I agree with your ongoing assessment and care of plan. Patient has been seen by Ronnell Hall NP on my behalf, him and I discussed the plan with the patient. Patient is scheduled with follow up with her mult au matic operator for event monitoring this week. Patient to follow up as planned. Continue telemetry monitoring. TSH normal. Check echo. IV antibiotics as ordered. Lipitor. Losartan. IV Hydralazine for SBP > 150. Morphine and [place] for pain management. Additional plan as per the hospital course. Plan discussed with: Patient NYHA Physical activity limitations: Class2(Slight)fatigue,sob Date of Service: Sep 19, 2024 Billing Provider: SAMUEL FRIAS MD Cardiology Common Codes: [id number] INP/OBS CARE (High) Cardiology Consultation Codes: [id number] CONSULT <45MIN SAMUEL FRIAS MD Sep 19, 2024 17:24
[2024-09-20] VITALS (9 sets, daily range): BP systolic 102–175; BP diastolic 51–79; PULSE 52–64; RESP 18–20; TEMP 97.9–98.4; O2SAT 93–96
[2024-09-20] MEDS: ONDANSETRON HCL 4 MG/2 ML VIAL IV PRN (09:42)
[2024-09-20] MEDS ORDERED: CEPH500C PO (14:53)
--- NOTE | 2024-09-20 14:55 | DVHDS2 ---
Discharge Summary Date of Admission Sep 18, 2024 at 23:21 Date of Discharge: Sep 20, 2024 Labs/Diagnostic Data: Laboratory Results Test 09/19/24 05:41 09/18/24 20:19 09/18/24 20:07 09/18/24 19:17 White Blood Count 6.1 10^3/uL (4.4-10.8) Red Blood Count 4.18 10^6/uL (4.0-5.20) Hemoglobin 13.2 g/dL (12.2-16.2) Hematocrit 39.0 % (36.0-46.0) Mean Corpuscular Volume 93.2 fL (80.0-100.0) Mean Corpuscular Hemoglobin 31.6 pg (28.0-32.0) Mean Corpuscular Hemoglobin Concent 34.0 g/dL (32.0-36.0) Red Cell Distribution Width 13.5 % (11.8-14.3) Platelet Count 180 10^3/uL (140-450) Mean Platelet Volume 8.4 fL (6.9-10.8) Neutrophils (%) (Auto) 58.5 % (37.0-80.0) Lymphocytes (%) (Auto) 32.6 % (10.0-50.0) Monocytes (%) (Auto) 7.3 % (0.0-12.0) Eosinophils (%) (Auto) 1.2 % (0.0-7.0) Basophils (%) (Auto) 0.4 % (0.0-2.0) Neutrophils # (Auto) 3.6 10 ^3/uL (1.6-8.6) Lymphocytes # (Auto) 2.0 10 ^3/uL (0.4-5.4) Monocytes # (Auto) 0.4 10 ^3/uL (0-1.3) Eosinophils # (Auto) 0.1 10 ^3/uL (0-0.8) Basophils # (Auto) 0 10 ^3/uL (0-0.2) Nucleated Red Blood Cells 0.0 % Sodium Level 146 mmol/L (136-145) Potassium Level 4.0 mmol/L (3.5-5.1) Chloride Level 112 mmol/L (98-107) Carbon Dioxide Level 25 mmol/L (20-31) Anion Gap 9 (5-15) Blood Urea Nitrogen 12 mg/dL (9-23) Creatinine 0.77 mg/dL (0.550-1.02) Glomerular Filtration Rate Calc 86 mL/min (>90) BUN/Creatinine Ratio 15.6 (10.0-20.0) Serum Glucose 87 mg/dL (74-106) Calcium Level 9.5 mg/dL (8.7-10.4) Total Bilirubin 0.6 mg/dL (0.2-1.0) Aspartate Amino Transferase (AST) 16 U/L (<34) Alanine Aminotransferase (ALT) 19 U/L (7-40) Alkaline Phosphatase 70 U/L (46-116) Total Protein 6.1 g/dL (5.7-8.2) Albumin 4.4 g/dL (3.2-4.8) Urine Color Yellow (Yellow) Urine Clarity Clear (Clear) Urine pH 5.5 (5.0-9.0) Urine Specific [place] 1.022 (1.001-1.035) Urine Protein Negative (Negative) Urine Ketones Negative (Negative) Urine Blood Negative /uL (Negative) Urine Nitrite Negative (Negative) Urine Bilirubin Negative (Negative) Urine Urobilinogen Normal mg/dL (Negative) Urine Leukocyte Esterase Trace /uL (Negative) Urine RBC <1 /hpf (0 - 4) Urine Microscopic WBC 4 /HPF (0-5) Urine Squamous Epithelial Cells Few /hpf (<5) Urine Bacteria Few /hpf (None Seen) Urine Mucus Few (None Seen) Urine Glucose Normal mg/dL (Normal) Troponin I High Sensitivity < 3 ng/L (</=34) Thyroid Stimulating Hormone (TSH) 1.80 uIU/mL (0.55-4.78) B-Type Natriuretic Peptide 19.92 pg/mL (0-100) Other Laboratory Tests 09/19/24 05:41 Brief Hx & Hospital Course: 63-year-old female with a known history of hypertension, dyslipidemia, thyroid disease, history of uterine cancer currently in remission presented to the hospital with the chest pain and palpitation eventually admitted to telemetry floor. Patient was closely monitored on telemetry telemetry shows no cardiac arrhythmias. Patient's TSH is normal. Cardiology evaluated the patient and patient was recommended to follow up as an outpatient with the PCP as well as Cardiology for outpatient event and Holter monitoring. This was discussed in detail with the patient who is a [place]ian speaker but patient's family member who speaks Luxembourger including young girl. Patient is being discharged under stable condition. Patient does have mild UTI which will be treated with a two more days of antibiotics p.o.. Condition at Discharge: Stable Final Diagnosis/Problems List 63-year-old female with a known history of hypertension, dyslipidemia, thyroid disease, history of uterine cancer currently in remission presented to the hospital with the chest pain and palpitation found to have 1. Chest pain and palpitation ruled out any cardiac arrhythmia, outpatient event monitoring or Holter monitoring 2. Shortness of breath 3. Pulmonary venous congestion 4. Hypertension 5. Dyslipidemia 6. Thyroid disease 7. History of uterine cancer currently in remission Discharge Disposition: Home SNF Discharge Will this Physician continue t: No Discharge Instruct/Medications Diet: Cardiac 2g Na,low cholest Activity: No Restrictions, As Tolerated Follow Up/Referral: Please follow up with the PCP in one week Follow up with the Cardiology in one week for outpatient event/Holter monitor to rule out any cardiac arrhythmias. Medications: Resume home medications. Discharge Statement: "Patient was advised to return to the ER or call 911 if any headaches, dizziness, shortness of breath, chest pain, abdominal pain, bleeding, fevers, or worsening of medical condition. Patient was counseled about treatment plan, medications, possible side effects, patientverbalized understanding. All questions were answered to the best of my ability. This discharge took greater then 30 minutes in planning, reviewing documentation, counseling the patient, and discussing with other team members." ASSESSMENT ASSESSMENT Assessment 63-year-old female with a known history of hypertension, dyslipidemia, thyroid disease, history of uterine cancer currently in remission presented to the hospital with the chest pain and palpitation found to have 1. Chest pain and palpitation ruled out any cardiac arrhythmia, outpatient event monitoring or Holter monitoring 2. Shortness of breath 3. Pulmonary venous congestion 4. Hypertension 5. Dyslipidemia 6. Thyroid disease 7. History of uterine cancer currently in remission Date of Service: Sep 20, 2024 Billing Provider: CLARISA NEGRON MD Common Visit Codes: 89499-DTT/OBS DISCH DAY >30min CLARISA NEGRON MD Sep 20, 2024 14:55
[2024-09-20] MEDS: hydrALAZINE HCL 20 MG/ML VL IV PRN (15:07)
[2024-09-20] MEDS ORDERED: cefTRIAXone 1GM/50ML D5W 50 ML IV SCH (15:30)
--- NOTE | 2024-09-20 22:17 | DVHPN2 ---
Progress Note - Dictate Date Seen: Sep 20, 2024 Medical Necessity Reason Pt with a Central, PICC or Fol: No Subjective Patient was seen and evaluated in follow up. Echo shows an EF of 65%. Patient denies any cardiac symptoms. Patient is cardiac stable for discharge. Telemetry reviewed. vital signs Vital Sign Date Time Temp Pulse Resp B/P (MAP) Pulse Ox O2 Delivery O2 Flow Rate FiO2 09/20/24 17:22 98.4 64 18 94 09/20/24 17:00 115/52 (73) 09/20/24 08:00 Room Air* 0 21 Total Intake and Output 09/19/24 09/19/24 09/20/24 15:00 23:00 07:00 Intake Total 400 ml 1200 ml Balance 400 ml 1200 ml objective GENERAL: Alert and oriented x 3. No acute distress. EYES: PERRL, EOMI. Anicteric. HENT: Moist mucous membranes. LUNGS: Clear to auscultation bilaterally. CARDIOVASCULAR: Regular rate and rhythm. ABDOMEN: Soft, nontender and nondistended. EXTREMITIES: No edema. NEUROLOGIC: No focal neurological deficits. SKIN: Warm, dry. laboratory and microbiology Laboratory Tests 09/19/24 05:41 Test 09/19/24 05:41 Range/Units Serum Glucose 87 74-106 mg/dL Problem List Heart palpitations. SOB. HTN. Assessment/Plan Continued all current supportive medical care. IV antibiotics as ordered. Lipitor. Losartan. IV Hydralazine for SBP > 150. Morphine and [place] for pain management. Plan discussed with: Patient SAMUEL FRIAS MD Sep 20, 2024 22:17
== END 2024-09-20 18:00 | disposition home or self-care (01) | DRG 309 ==
LOC: ER 18:53 → OVERFLOW 23:21 → TELE-EAST 09-19 15:16
PROVIDERS: ADMIT Internal Medicine; ATTEND Internal Medicine
DX: R00.2 Palpitations (principal); N39.0 Urinary tract infection, site not specified; R06.02 Shortness of breath; R07.89 Other chest pain; E07.9 Disorder of thyroid, unspecified; E78.5 Hyperlipidemia, unspecified; I10 Essential (primary) hypertension; C55 Malignant neoplasm of uterus, part unspecified; R09.89 Other specified symptoms and signs involving the circulatory and respiratory systems; F17.210 Nicotine dependence, cigarettes, uncomplicated; Z90.710 Acquired absence of both cervix and uterus; Z90.79 Acquired absence of other genital organ(s); Z79.899 Other long term (current) drug therapy
CPT/HCPCS: 36415; 71045; 80048; 80053; 81001; 83880; 84443; 84484; 85025; 93306; 96374; G0378; J2405

== ENCOUNTER 2024-10-26 08:14 | Outpatient (CLI) | payer OTHER ==
[~2024-10-26 08:14] MED LIST: ATOR20TA50 PO; CEPH500C PO; LEVO-848 PO; LOSA100T33 PO
[2024-10-26 08:57] LABS: Urine Protein, UAD Negative (Negative)
[2024-10-26 09:06] LABS: Hematocrit 41.0 % (36.0-46.0); Hemoglobin 13.9 g/dL (12.2-16.2); Mean Corpuscular Hemoglobin 31.5 pg (28.0-32.0); Mean Corpuscular Volume 93.0 fL (80.0-100.0); Nucleated Red Blood Cells % 0.1 %
[2024-10-26 10:14] LABS: Alanine Aminotransferase 20 U/L (7-40); Albumin 4.4 g/dL (3.2-4.8); Alkaline Phosphatase 74 U/L (46-116); Anion Gap 7 (5-15); BUN/Creatinine Ratio 22.2 (10.0-20.0); Blood Urea Nitrogen 18 mg/dL (9-23); Calcium 9.0 mg/dL (8.7-10.4); Carbon Dioxide 27 mmol/L (20-31); Cholesterol 108 mg/dL (< 200); Glucose 98 mg/dL (74-106); Potassium 4.0 mmol/L (3.5-5.1); Sodium 142 mmol/L (136-145); Total Protein 6.2 g/dL (5.7-8.2); Triglycerides 119 mg/dL (< 150)
[2024-10-26 10:15] LABS: Bilirubin, Total 0.6 mg/dL (0.2-1.0)
[2024-10-26 10:17] LABS: Chloride 108 mmol/L (98-107); HDL Cholesterol 34 mg/dL (40-59)
[2024-10-27 11:37] LABS: Hepatitis A Total Antibody Positive (Negative); Hepatitis B Surface Antigen Negative (Negative); Hepatitis C Antibody Negative (Negative)
== END 2024-10-26 17:00 | disposition home or self-care (01) ==
LOC: LAB 08:14
PROVIDERS: ATTEND Nurse Practitioner Family
DX: I10 Essential (primary) hypertension (principal); E78.5 Hyperlipidemia, unspecified; E55.9 Vitamin D deficiency, unspecified; R73.9 Hyperglycemia, unspecified; R50.9 Fever, unspecified; R06.02 Shortness of breath; Z12.11 Encounter for screening for malignant neoplasm of colon; E03.9 Hypothyroidism, unspecified
CPT/HCPCS: 36415; 80053; 80061; 81001; 82274; 83036; 83880; 84439; 84443; 85025; 86703; 86704; 86706; 86708; 86780; 86803; 87340